=== PATIENT | female | born 1940 | race Hispanic/Latino ===

== ENCOUNTER 2017-09-05 15:51 | Inpatient (IN) | payer MEDICARE, BC ==
[2017-09-05 16:00] VITALS: BMI 42.9
[2017-09-05] MEDS ORDERED: Morphine 4 mg/ml ISec IVP STA (16:08)
[2017-09-05] MEDS ORDERED: Sodium Chloride 0.9% 1,000 ML IV STA (16:08)
[2017-09-05] MEDS ORDERED: DiphenhydrAMINE 50 mg/ml Inj IVP STA (16:08)
--- NOTE | 2017-09-05 16:09 | ED PDOC ---
Arrival/HPI - General Time Seen by Provider: 09/05/17 15:58 Historian: Patient - History of Present Illness Narrative History of Present Illness (Text): 09/05/17 16:06 76 year old female, whose history includes osteoarthritis, meningioma, ulcers, right knee replacement, and gall bladder surgery, presents to the Emergency department complaining of nausea for 1 week as well as fever and right lower back pain for 2 days. Patient states her doctor is concerned she may have a kidney infection. Patient denies any chest pain, shortness of breath, vomiting, diarrhea, urinary symptoms, neck pain, headache, dizziness, or any other complaints. PMD: Dr. Graff, Dr. Strickland Time/Duration: 1 week, < week (2 days ago) Symptom Onset: Gradual Symptom Course: Unchanged Context: Home Past Medical History - Provider Review Nursing Documentation Reviewed: Yes Family/Social History - Physician Review Nursing Documentation Reviewed: Yes Family/Social History: Unknown Family HX Allergies/Home Meds Allergies/Adverse Reactions: Allergies acetaminophen [From Percocet] Adverse Reaction (Verified 09/05/17 16:01) ITCHING ciprofloxacin [From Cipro] Adverse Reaction (Verified 09/05/17 16:01) ITCHING codeine Adverse Reaction (Verified 09/05/17 16:01) ITCHING levofloxacin [From Levaquin] Adverse Reaction (Verified 09/05/17 16:01) ITCHING oxycodone [From Percocet] Adverse Reaction (Verified 09/05/17 16:01) ITCHING sulfamethoxazole [From Bactrim] Adverse Reaction (Verified 09/05/17 16:01) ITCHING trimethoprim [From Bactrim] Adverse Reaction (Verified 09/05/17 16:01) ITCHING Review of Systems - Physician Review All systems were reviewed & negative as marked: Yes - Review of Systems Constitutional: Fevers Respiratory: absent: SOB Cardiovascular: absent: Chest Pain Gastrointestinal: Nausea. absent: Diarrhea, Vomiting Genitourinary Female: absent: Dysuria Musculoskeletal: Back Pain (right lower back pain). absent: Neck Pain Neurological: absent: Headache, Dizziness Physical Exam Vital Signs Reviewed: Yes Vital Signs Temp Pulse Resp BP Pulse Ox 09/05/17 16:03 98.8 F 89 18 107/50 L 95 Temperature: Afebrile Blood Pressure: Hypotensive Pulse: Regular Respiratory Rate: Normal Appearance: Positive for: Well-Appearing, Non-Toxic, Comfortable Pain Distress: None Mental Status: Positive for: Alert and Oriented X 3 - Systems Exam Head: Present: Atraumatic, Normocephalic Pupils: Present: PERRL Extroacular Muscles: Present: EOMI Conjunctiva: Present: Normal Mouth: Present: Moist Mucous Membranes Neck: Present: Normal Range of Motion Respiratory/Chest: Present: Clear to Auscultation, Good Air Exchange. No: Respiratory Distress, Accessory Muscle Use Cardiovascular: Present: Regular Rate and Rhythm, Normal S1, S2. No: Murmurs Abdomen: No: Tenderness, Distention, Peritoneal Signs Back: Present: Normal Inspection Upper Extremity: Present: Normal Inspection. No: Cyanosis, Edema Lower Extremity: Present: Normal Inspection. No: Edema Neurological: Present: GCS=15, CN II-XII Intact, Speech Normal Skin: Present: Warm, Dry, Normal Color. No: Rashes Psychiatric: Present: Alert, Oriented x 3, Normal Insight, Normal Concentration Medical Decision Making ED Course and Treatment: 09/05/17 16:12 Impression: 76 year old female presents to the Emergency department complaining of nausea, fever, and lower back pain. Plan: -- Blood culture, urine culture -- Urinalysis -- VBG -- Labs -- Benadryl, Morphine, Zofran, Sodium Chloride IV fluids -- Reassess and disposition Progress Notes: 09/05/17 20:33 Discussed case in detail with Dr. Strickland who requests the patient be given 2g of Rocephin. Will admit the patient for pyelonephritis. - Lab Interpretations Lab Results: 09/05/17 16:51 09/05/17 16:51 Lab Results 09/05/17 20:02: Urine Color Yellow, Urine Appearance Slight-cloudy, Urine pH 6.0 , Ur Specific [place] 1.010, Urine Protein Negative, Urine Glucose (UA) Negative , Urine Ketones Negative, Urine Blood Moderate H, Urine Nitrate Positive H, Urine Bilirubin Negative, Urine Urobilinogen 0.2, Ur Leukocyte Esterase Large H , Urine RBC 1 - 3, Urine WBC 5 - 10, Ur Epithelial Cells 6 - 8, Urine Bacteria Mod 09/05/17 16:51: Sodium 146, Chloride 104, Potassium 3.8, Carbon Dioxide 28, Anion Gap 18, BUN 15, Creatinine 1.0, Est GFR ( Amer) > 60, Est GFR (Non- Af Amer) 54, Random Glucose 119 H, Calcium 9.1, Total Bilirubin 1.9 H, AST 91 H , ALT 47, Alkaline Phosphatase 104, Total Protein 7.4, Albumin 3.9, Globulin 3.5 , Albumin/Globulin Ratio 1.1, Lipase 31 09/05/17 16:51: pO2 27 L, VBG pH 7.35, VBG pCO2 54.0, VBG HCO3 29.8 H, VBG Total CO2 31.5 H, VBG O2 Sat (Calc) 54.5, VBG Base Excess 2.9 H, VBG Potassium 3.6, Sodium 140.0, Chloride 105.0, Glucose 122 H, Lactate 1.8, FiO2 21.0, Venous Blood Potassium 3.6 09/05/17 16:51: PT 15.9 H, INR 1.39 H 09/05/17 16:51: WBC 17.9 H, RBC 4.86, Hgb 14.6, Hct 44.1, MCV 90.7, MCH 30.0, MCHC 33.1, RDW 14.4, Plt Count 161, MPV 10.9, Gran % 91.8 H, Lymph % (Auto) 3.8 L, [place] % (Auto) 4.3, Eos % (Auto) 0.0 L, Baso % (Auto) 0.1, Gran # 16.45 H, Lymph # (Auto) 0.7 L, [place] # (Auto) 0.8 H, Eos # (Auto) 0.0, Baso # (Auto) 0.01 , Neutrophils % (Manual) 85 H, Band Neutrophils % 3 H, Lymphocytes % (Manual) 9 L, Monocytes % (Manual) 3, Platelet Evaluation Normal - RAD Interpretation Radiology Orders: 09/05/17 16:37 ABD PELVIS PO & IV CONTRAST [CT] Stat 09/05/17 18:54 LUMBAR SPINE W/CONTRAST [CT] Stat - Medication Orders Current Medication Orders: Ceftriaxone Sodium (Rocephin 2 Gm Ivpb) 2 gm in 100 mls @ 100 mls/hr IVPB STAT STA PRN Reason: Protocol Stop: 09/05/17 21:14 Discontinued Medications Acetaminophen (Tylenol 325mg Tab) 975 mg PO STAT STA Stop: 09/05/17 17:06 Last Admin: 09/05/17 17:25 Dose: 975 mg MAR Pain/Vitals Document 09/05/17 17:25 HI (Rec: 09/05/17 17:25 HI [facility]) Pain Reassessment Is This A Pain ReAssessment? No Sleep Is patient sleeping during reassessment? No Presence of Pain Presence of Pain Yes Sodium Chloride (Sodium Chloride 0.9%) 1,000 mls @ 999 mls/hr IV .Q1H1M STA Stop: 09/05/17 17:08 Last Admin: 09/05/17 16:56 Dose: 999 mls/hr eMAR Start Stop Document 09/05/17 16:56 HI (Rec: 09/05/17 16:56 [facility]) Intravenous Solution Start Date 09/05/17 Start Time 16:56 Ondansetron HCl (Zofran Inj) 8 mg IVP STAT STA Stop: 09/05/17 16:09 Last Admin: 09/05/17 16:56 Dose: 8 mg IVP Administration Document 09/05/17 16:56 HI (Rec: 09/05/17 16:56 [facility] Charges for Administration # of IVP Administrations 1 Ondansetron HCl (Zofran Inj) 4 mg IVP STAT STA Stop: 09/05/17 19:58 Last Admin: 09/05/17 20:09 Dose: 4 mg IVP Administration Document 09/05/17 20:09 HI (Rec: 09/05/17 20:09 HI [facility]) Charges for Administration # of IVP Administrations 1 - Scribe Statement The provider has reviewed the documentation as recorded by the Scribbob Dan All medical record entries made by the Meghaibbob were at my direction and personally dictated by me. I have reviewed the chart and agree that the record accurately reflects my personal performance of the history, physical exam, medical decision making, and the department course for this patient. I have also personally directed, reviewed, and agree with the discharge instructions and disposition. Disposition/Present on Arrival - Present on Arrival Any Indicators Present on Arrival: No History of DVT/PE: No History of Uncontrolled Diabetes: No Urinary Catheter: No History of Decub. Ulcer: No History Surgical Site Infection Following: None - Disposition Have Diagnosis and Disposition been Completed?: Yes Diagnosis: Pyelonephritis Disposition: HOSPITALIZED Disposition Time: 20:41 Patient Plan: Admission Patient Problems: Current Active Problems Problem Status Onset Pyelonephritis Acute Condition: FAIR
[2017-09-05 17:11] LABS: VENOUS BLOOD GAS BASE EXCESS 2.9 mmol/L (0.0-2.0); VENOUS BLOOD GAS PO2 27 mm/Hg (30-55); VENOUS BLOOD PH 7.35 (7.32-7.43)
[2017-09-05 17:13] LABS: BASO # 0.01 K/mm3 (0.0-2.0); BASO % 0.1 % (0.0-3.0); GRAN # 16.45 (1.4-6.5); GRAN % 91.8 % (50.0-68.0); HEMOGLOBIN 14.6 g/dL (12.0-16.0); LYMPH # 0.7 (1.2-3.4); LYMPH % 3.8 % (22.0-35.0); MEAN CELL VOLUME 90.7 fl (80.0-105.0); MEAN CORPUSCULAR HGB CONC 33.1 g/dl (31.0-37.0); MEAN PLATELET VOLUME 10.9 fl (7.0-11.0); MONO # 0.8 (0.1-0.6); MONO % 4.3 % (1.0-6.0); PLATELET COUNT 161 10^3/uL (120.0-450.0); RBC 4.86 10^6/uL (3.5-6.1); RED CELL DISTRIBUTION WIDTH 14.4 % (11.5-14.5); WHITE BLOOD COUNT 17.9 10^3/ul (4.5-11.0)
[2017-09-05 17:19] LABS: INR 1.39 (0.93-1.08); PROTHROMBIN TIME 15.9 SECONDS (9.4-12.5)
[2017-09-05] MEDS ORDERED: Iohexol 240 (50 ml) ONE (17:21)
[2017-09-05 17:46] LABS: BAND 3 % (0-2); LYMPHOCYTE 9 % (22.0-35.0); MONOCYTE 3 % (1.0-6.0); NEUTROPHIL 85 % (50.0-70.0); PLATELET ESTIMATE NORMAL (NORMAL)
[2017-09-05 17:53] LABS: ALB/GLOB RATIO 1.1 (1.1-1.8); ALBUMIN 3.9 g/dL (3.0-4.8); ALT/SGPT 47 U/L (7-56); AST/SGOT 91 U/L (14-36); BLOOD UREA NITROGEN 15 mg/dL (7-21); CALCIUM 9.1 mg/dL (8.4-10.5); GFR NON-AFRICAN AMERICAN 54; LIPASE 31 U/L (23-300)
[2017-09-05 20:11] LABS: URINE BILIRUBIN NEGATIVE (NEGATIVE); URINE BLOOD MODERATE (NEGATIVE); URINE GLUCOSE (UA) NEGATIVE (NEGATIVE); URINE LEUKOCYTE ESTERASE LARGE Leu/uL (NEGATIVE); URINE PROTEIN NEGATIVE mg/dL (<30 mg/dL); URINE UROBILINOGEN 0.2 E.U./dL (<1 E.U./dL)
[2017-09-05 20:12] LABS: URINE APPEARANCE SLIGHT-CLOUDY (CLEAR); URINE COLOR YELLOW (YELLOW)
[2017-09-05] MEDS ORDERED: cefTRIAXone 2 GM IN NS 2 GM/100 ML BAG IVPB STA (20:15)
[2017-09-05 20:16] LABS: URINE BACTERIA MOD (NEG)
[2017-09-05] MEDS ORDERED: Sodium Chloride 0.9% 1,000 ML IV SCH (23:45)
--- NOTE | 2017-09-06 04:45 | CP.PCM.PN ---
Subjective - Date & Time of Evaluation Date of Evaluation: 09/06/17 Time of Evaluation: 04:42 - Subjective Subjective: S:Nausea. Received Zofran 8 mg IV at 1:40 AM. Still nauseous. Denies chest pain, palpitation, sob. Gives history of GERD. Medical record was reviewed. O: Last Vital Signs 3 Temp 99 F 09/06/17 04:32 Pulse 94 H 09/06/17 04:32 Resp 20 09/06/17 04:32 BP 141/69 09/06/17 04:32 Pulse Ox 98 09/06/17 04:32 Awake, alert, not in distress. LUNGS:Normal breathing pattern. ABD: No distension. A: Nausea. P:Reglan 10 mg IV x 1. Objective - Vital Signs/Intake and Output Vital Signs (last 24 hours): Temp Pulse Resp BP Pulse Ox 99 F 94 H 20 141/69 98 09/06/17 04:32 09/06/17 04:32 09/06/17 04:32 09/06/17 04:32 09/06/17 04:32 - Medications Medications: Current Medications Acetaminophen (Tylenol 325mg Tab) 650 mg PO Q4H PRN PRN Reason: Pain, Mild (1-3) Aspirin (Aspirin Chewable) 81 mg PO DAILY [facility] Sodium Chloride (Sodium Chloride 0.9%) 1,000 mls @ 75 mls/hr IV .[id number] [facility] Stop: 09/06/17 13:04 Last Admin: 09/06/17 00:12 Dose: 75 mls/hr Metoclopramide HCl (Reglan) 10 mg IVP STAT STA Stop: 09/06/17 04:43 Ondansetron HCl (Zofran Inj) 4 mg IVP Q4H PRN PRN Reason: Nausea/Vomiting Last Admin: 09/06/17 01:41 Dose: 4 mg - Labs Labs: PT 15.9 SECONDS (9.4-12.5) H 09/05/17 16:51 INR 1.39 (0.93-1.08) H 09/05/17 16:51
[2017-09-06 07:40] LABS: HEMOGLOBIN 13.9 g/dL (12.0-16.0); MEAN CELL VOLUME 91.1 fl (80.0-105.0); MEAN CORPUSCULAR HEMOGLOBIN 30.2 pg (25.0-35.0); MEAN CORPUSCULAR HGB CONC 33.2 g/dl (31.0-37.0); MEAN PLATELET VOLUME 10.6 fl (7.0-11.0); RBC 4.6 10^6/uL (3.5-6.1); RED CELL DISTRIBUTION WIDTH 14.7 % (11.5-14.5); WHITE BLOOD COUNT 12.5 10^3/ul (4.5-11.0)
[2017-09-06 07:50] LABS: ALB/GLOB RATIO 1.2 (1.1-1.8); ALBUMIN 3.5 g/dL (3.0-4.8); ALT/SGPT 51 U/L (7-56); AST/SGOT 95 U/L (14-36); BLOOD UREA NITROGEN 14 mg/dL (7-21); GFR NON-AFRICAN AMERICAN > 60
[2017-09-06] MEDS ORDERED: cefTRIAXone 1 gm 1 GM/100 ML BAG IVPB SCH (10:00)
[2017-09-06] MEDS: Cefepime IV 2 gm in NS 2 GM/100 ML BAG IVPB SCH ×3 (10:09→21:36)
--- NOTE | 2017-09-06 12:40 | CT ---
PROCEDURE: CT Lumbar Spine without contrast HISTORY: Right Sided Lumbar Radiculopathy COMPARISON: None. TECHNIQUE: Axial computed tomography images were obtained of the lumbar spine without the use of intravenous contrast. Coronal and sagittal reformatted images were created and reviewed. Radiation dose: Total exam DLP = 1164 mGy-cm. This CT exam was performed using one or more of the following dose reduction techniques: Automated exposure control, adjustment of the mA and/or kV according to patient size, and/or use of iterative reconstruction technique. FINDINGS: VERTEBRAE: There is a moderate compression fracture of L2 greater on the right side. Probably chronic. Age uncertain DISCS/SPINAL CANAL/NEURAL FORAMINA: L1-2: Unremarkable. L2-3: Unremarkable. L3-4: Unremarkable. L4-5: Mild disc bulge L5-S1: Disc degeneration at L5-S1 PARASPINAL SOFT TISSUES: Unremarkable. OTHER FINDINGS: The report concurs with the preliminary [facility] report IMPRESSION: Moderate compression fracture of L2 probably chronic.
--- NOTE | 2017-09-06 12:45 | CT ---
PROCEDURE: CT Abdomen and Pelvis with contrast HISTORY: Diffuse Abdominal Pain COMPARISON: None. TECHNIQUE: Contrast dose: 150 cc of Omni 350 Radiation dose: Total exam DLP = 1164 mGy-cm. This CT exam was performed using one or more of the following dose reduction techniques: Automated exposure control, adjustment of the mA and/or kV according to patient size, and/or use of iterative reconstruction technique. FINDINGS: LOWER THORAX: Unremarkable. LIVER: Unremarkable. No gross lesion or ductal dilatation. GALLBLADDER AND BILE DUCTS: Unremarkable. PANCREAS: Unremarkable. No gross lesion or ductal dilatation. SPLEEN: Unremarkable. ADRENALS: Unremarkable. No mass. KIDNEYS AND URETERS: Unremarkable. No hydronephrosis. No solid mass. VASCULATURE: Unremarkable. No aortic aneurysm. BOWEL: Unremarkable. No obstruction. No gross mural thickening. APPENDIX: Normal appendix. PERITONEUM: Unremarkable. No free fluid. No free air. LYMPH NODES: Unremarkable. No enlarged lymph nodes. BLADDER: Unremarkable. REPRODUCTIVE: Unremarkable. BONES: Chronic appearing compression fracture of L2 OTHER FINDINGS: The report concurs with the preliminary [facility] report IMPRESSION: No acute intra-abdominal findings
[2017-09-06] MEDS: Lidocaine 5% Patch TD SCH (13:37)
--- NOTE | 2017-09-06 20:03 | HP ---
CHIEF COMPLAINT AND HISTORY OF PRESENT ILLNESS: This is a 76-year-old female who has come into the hospital complaining of nausea, fever. She was having right-sided back pain for the past two days. She was having dysuria, frequency. The patient has a past medical history of osteoarthritis, meningioma, peptic ulcer disease, right knee replacement, gallbladder surgery. REVIEW OF SYSTEMS: The patient has no abdominal pain, no headaches or dizziness, no weakness in the arms or the legs. She says she does have urinary frequency. She does have nausea. All other review of symptoms are within normal limits except what was mentioned. ALLERGIES: CIPRO, CODEINE, LEVOFLOXACIN, OXYCODONE, IBUPROFEN, . PAST MEDICAL HISTORY: As above. SOCIAL HISTORY: She denies drug use or smoking. FAMILY HISTORY: Noncontributory. PHYSICAL EXAMINATION VITAL SIGNS: The patient has a temperature of 99.8, pulse is 94, blood pressure is 141/69, respirations 20, O2 saturation 98%. GENERAL: The patient lying in bed, uncomfortable, and in no acute distress. HEENT: Atraumatic and normocephalic. Anicteric sclerae. Moist mucosa. [place]her conjunctivae. No oral lesions. NECK: No JVD, anterior and posterior adenopathy, thyromegaly, or bruits. CARDIOVASCULAR: S1 and S2 regular. No murmur, rubs, or gallop. LUNGS: Clear to auscultation bilaterally. No wheezes, rales, or rhonchi. ABDOMEN: Bowel sounds are positive. Soft, nontender and nondistended. No hepatosplenomegaly. No rebound and no guarding EXTREMITIES: No cyanosis, clubbing, or edema. NEUROLOGIC: No facial asymmetry. Tongue is midline. No uvula deviation. Power is 5/5 upper extremity and lower extremity. Sensation intact in upper extremity and lower extremity. PSYCHIATRIC: She is awake, alert and oriented x3. No anxiety or depression. She has normal affect. VASCULAR: 2+ pulses in the carotid pulses and pedal pulses. SKIN: No erythema or nodules SPINE: Shows normal curvature. BACK: There is right-sided CVA tenderness. LABORATORY DATA: White count of 17.9, repeat is 12.5. INR is 1.39. Chemistry shows potassium is 3.8, sodium is 146, creatinine is 1, albumin is 3.9. Urine shows blood is moderate, nitrite is positive, esterase is large. ASSESSMENT: 1. Sepsis secondary to urinary tract infection. 2. Right-sided pyelonephritis. 3. Obese with body mass index of 42. 4. History of peptic ulcer disease. PLAN: The patient is complaining of nausea. The patient has been placed on Zofran. She is going to continue Tylenol. I did offer her pain medication, but she says she is allergic to most pain medications, does not wish to take risk of taking either MORPHINE, PERCOCET OR CODEINE. The patient is on IV fluids. I will give her 1 liter. She is on aspirin. She needs to continue on antibiotics. I will get ID to evaluate the patient as well. Oliver Strickland MD
--- NOTE | 2017-09-06 21:12 | CP.PCM.CON ---
History of Present Illness - History of Present Illness History of Present Illness: 76 year old female with PMH of osteoarthritis, meningioma, S/P right knee replacement, S/P gallbladder surgery, morbid obesity with BMI 43 came in to [facility] complaining of right sided back pain associated with fever and chills. She also had nausea and an episode of vomiting, but denies abdominal pain, no dysuria, no hematuria, no diarrhea. She also denies headache or dizziness, no chest pain , no SOB, no cough or rhinorrhea, no sore throat. Urinalysis is showing pyuria and blood cx are positive for gram negative bacilli. Infectious Diseases consult is requested to further evaluate and manage. Review of Systems - Review of Systems All systems: reviewed and no additional remarkable complaints except (as per HPI ) Past Patient History - Past Social History Smoking Status: Never Smoked - NEUROLOGICAL Other/Comment: Meningioma - MUSCULOSKELETAL/RHEUMATOLOGICAL Hx Falls: No - GASTROINTESTINAL Hx Gastroesophageal Reflux: Yes Hx Ulcer: Yes - PSYCHIATRIC Hx Substance Use: No - ANESTHESIA Hx Anesthesia: No Hx Anesthesia Reactions: No Hx Malignant Hyperthermia: No Meds Allergies/Adverse Reactions: Allergies Allergy/AdvReac Type Severity Reaction Status Date / Time ciprofloxacin [From Cipro] AdvReac ITCHING Verified 09/05/17 16:01 codeine AdvReac ITCHING Verified 09/05/17 16:01 levofloxacin [From Levaquin] AdvReac ITCHING Verified 09/05/17 16:01 oxycodone [From Percocet] AdvReac ITCHING Verified 09/05/17 16:01 sulfamethoxazole AdvReac ITCHING Verified 09/05/17 16:01 [From Bactrim] trimethoprim [From Bactrim] AdvReac ITCHING Verified 09/05/17 16:01 - Medications Medications: Current Medications Acetaminophen (Tylenol 325mg Tab) 650 mg PO Q4H PRN PRN Reason: Pain, Mild (1-3) Last Admin: 09/06/17 05:58 Dose: 650 mg Aspirin (Aspirin Chewable) 81 mg PO DAILY [facility] Sodium Chloride (Sodium Chloride 0.9%) 1,000 mls @ 75 mls/hr IV .[id number] [facility] Stop: 09/06/17 13:04 Last Admin: 09/06/17 00:12 Dose: 75 mls/hr Cefepime HCl (Maxipime 2gm) 2 gm in 100 mls @ 100 mls/hr IVPB Q8 [facility] PRN Reason: Protocol Stop: 09/11/17 09:16 Ondansetron HCl (Zofran Inj) 4 mg IVP Q4H PRN PRN Reason: Nausea/Vomiting Last Admin: 09/06/17 05:58 Dose: 4 mg Physical Exam - Constitutional Appears: Chronically Ill - Head Exam Head Exam: NORMAL INSPECTION - ENT Exam ENT Exam: Mucous Membranes Moist - Neck Exam Neck exam: Negative for: Meningismus - Respiratory Exam Respiratory Exam: Decreased Breath Sounds - Cardiovascular Exam Cardiovascular Exam: +S1, +S2 - GI/Abdominal Exam GI & Abdominal Exam: Soft. absent: Tenderness Results - Vital Signs Recent Vital Signs: Last Vital Signs Temp 99.8 F H 09/06/17 07:43 Pulse 94 H 09/06/17 07:43 Resp 20 09/06/17 07:43 BP 141/69 09/06/17 07:43 Pulse Ox 98 09/06/17 07:43 - Labs Result Diagrams: 09/06/17 07:00 09/06/17 07:00 Labs: Laboratory Results - last 24 hr 09/06/17 09/06/17 07:00 07:00 WBC 12.5 H D RBC 4.60 Hgb 13.9 Hct 41.9 MCV 91.1 MCH 30.2 MCHC 33.2 RDW 14.7 H Plt Count 124 MPV 10.6 Sodium 148 Potassium 4.4 Chloride 109 H Carbon Dioxide 29 Anion Gap 14 BUN 14 Creatinine 0.9 Est GFR ( Amer) > 60 Est GFR (Non-Af Amer) > 60 Random Glucose 109 Calcium 9.0 Total Bilirubin 1.2 AST 95 H ALT 51 Alkaline Phosphatase 103 Total Protein 6.6 Albumin 3.5 Globulin 3.1 Albumin/Globulin Ratio 1.2 Assessment & Plan - Assessment and Plan (Free Text) Plan: Assessment Sepsis due to gram negative bacilli bacteremia, consider due to right sided pyelonephritis osteoarthritis meningioma S/P right knee replacement S/P gallbladder surgery morbid obesity with BMI 43 Plan started Cefepime pending identification and sensitivities of the gram negative bacilli in the blood; follow up urine cx; CT A/P does not show nephrolithiasis will monitor clinically
[2017-09-07] MEDS: Cefepime IV 2 gm in NS 2 GM/100 ML BAG IVPB SCH ×3 (05:37→21:15)
[2017-09-07 06:49] LABS: HEMOGLOBIN 13.4 g/dL (12.0-16.0); MEAN CELL VOLUME 90.5 fl (80.0-105.0); MEAN CORPUSCULAR HEMOGLOBIN 29.5 pg (25.0-35.0); MEAN CORPUSCULAR HGB CONC 32.5 g/dl (31.0-37.0); MEAN PLATELET VOLUME 10.8 fl (7.0-11.0); RBC 4.55 10^6/uL (3.5-6.1); RED CELL DISTRIBUTION WIDTH 14.6 % (11.5-14.5); WHITE BLOOD COUNT 10.2 10^3/ul (4.5-11.0)
[2017-09-07] MEDS: Lidocaine 5% Patch TD SCH (09:21)
--- NOTE | 2017-09-07 11:11 | PN ---
DATE: 09/07/2017 SUBJECTIVE: The patient has no complaints of any chest pain, no shortness of breath. She says that her back pain is better. Her dysuria has improved a bit since she has been in the hospital. She does have nausea still. She has a poor appetite. PHYSICAL EXAMINATION VITAL SIGNS: Temperature is 97.9, pulse of 90, blood pressure is 101/62, respiration is 20. GENERAL: The patient is lying in bed, flat, comfortable. HEENT: No oral lesion. Anicteric sclerae. Moist mucosa. NECK: No JVD, adenopathy, or thyromegaly. CARDIOVASCULAR: S1 and S2, regular. No murmurs, rubs, or gallops. LUNGS: Clear to auscultation bilaterally. No wheeze, rales, or rhonchi. ABDOMEN: Bowel sounds are positive, soft, nontender and nondistended. EXTREMITIES: no cyanosis, clubbing or edema. LABORATORY DATA: White count of 10.2, hemoglobin is 13.4, platelet count is 91. Blood cultures are positive for gram-negative rods. ASSESSMENT AND PLAN: 1. Sepsis secondary to gram-negative rods. 2. Right-sided pyelonephritis. 3. Obese with BMI of 43. 4. Peptic ulcer disease. 5. Nausea. PLAN: The patient is improving. Her sepsis is improving with a white count being normal. The patient is on IV antibiotics. She is on cefepime for antibiotics. She is on Tylenol. She is on Zofran. She is on a heart healthy diet. I will speak to the patient's to give an update on the patient's diagnostics and plan of care. She may need physical therapy. We will get physical therapy evaluation. Also, possible TCU evaluation. Clinically, she has right-sided pyelonephritis. Oliver Strickland MD
--- NOTE | 2017-09-07 12:07 | CP.PCM.PN ---
Subjective - Date & Time of Evaluation Date of Evaluation: 09/07/17 Time of Evaluation: 11:25 - Subjective Subjective: Patient has less back pain, still with nausea but a little less, no fevers overnight. Objective - Vital Signs/Intake and Output Vital Signs (last 24 hours): Temp Pulse Resp BP Pulse Ox 97.9 F 90 20 101/62 95 09/07/17 06:00 09/07/17 06:00 09/07/17 06:00 09/07/17 06:00 09/07/17 06:00 - Medications Medications: Current Medications Acetaminophen (Tylenol 325mg Tab) 650 mg PO Q4H PRN PRN Reason: Pain, Mild (1-3) Last Admin: 09/07/17 03:24 Dose: 650 mg Aspirin (Aspirin Chewable) 81 mg PO DAILY [facility] Last Admin: 09/07/17 09:21 Dose: 81 mg Cefepime HCl (Maxipime 2gm) 2 gm in 100 mls @ 100 mls/hr IVPB Q8 [facility] PRN Reason: Protocol Stop: 09/11/17 09:16 Last Admin: 09/07/17 05:37 Dose: 100 mls/hr Lidocaine (Lidoderm) 1 ea TD DAILY [facility] Last Admin: 09/07/17 09:21 Dose: 1 ea Ondansetron HCl (Zofran Inj) 4 mg IVP Q4H PRN PRN Reason: Nausea/Vomiting Last Admin: 09/07/17 03:23 Dose: 4 mg Tramadol HCl (Ultram) 50 mg PO Q6H PRN PRN Reason: Pain, severe (8-10) - Labs Labs: 09/07/17 06:30 09/06/17 07:00 PT 15.9 SECONDS (9.4-12.5) H 09/05/17 16:51 INR 1.39 (0.93-1.08) H 09/05/17 16:51 - Constitutional Appears: Non-toxic, Chronically Ill - Head Exam Head Exam: NORMAL INSPECTION - Neck Exam Neck Exam: absent: Meningismus - Respiratory Exam Respiratory Exam: Decreased Breath Sounds - Cardiovascular Exam Cardiovascular Exam: +S1, +S2 - GI/Abdominal Exam GI & Abdominal Exam: Soft. absent: Tenderness Assessment and Plan - Assessment and Plan (Free Text) Plan: Assessment Sepsis due to gram negative bacilli bacteremia, probably due to right sided pyelonephritis osteoarthritis meningioma S/P right knee replacement S/P gallbladder surgery morbid obesity with BMI 43 Plan cotinue Cefepime day 2 pending identification and sensitivities of the gram negative bacilli in the blood and urine; follow up urine cx; CT A/P does not show nephrolithiasis will continue to monitor clinically
[2017-09-08] MEDS: Cefepime IV 2 gm in NS 2 GM/100 ML BAG IVPB SCH ×3 (05:37→22:09)
[2017-09-08] MEDS: Pantoprazole 40 mg EC Tab PO SCH (10:03)
[2017-09-08] MEDS: Lidocaine 5% Patch TD SCH (10:04)
--- NOTE | 2017-09-08 14:03 | PN ---
DATE: 09/08/2017 SUBJECTIVE: The patient has no complaints of any chest pain, no shortness of breath. She continues to complain of nausea. She states that she also is having back pain and having difficulty in ambulating. Her pain is about 5-6/10. She states she is agreeable to take NSAIDs with PPI to help well with the pain management. PHYSICAL EXAMINATION: VITAL SIGNS: Temperature is 97.8, pulse of 86, blood pressure is 143/84, respirations 20. GENERAL: The patient is lying in bed, flat, comfortable. HEENT: No oral lesion. Anicteric sclerae. Moist mucosa. NECK: No JVD, adenopathy, or thyromegaly. CARDIOVASCULAR: S1 and S2, regular. No murmurs, rubs, or gallops. LUNGS: Clear to auscultation bilaterally. No wheeze, rales, or rhonchi. ABDOMEN: Bowel sounds are positive, soft, nontender and nondistended. EXTREMITIES: No cyanosis, clubbing or edema. ASSESSMENT: 1. Sepsis secondary to urinary tract infection. 2. Right-sided pyelonephritis. 3. Obese with body mass index of 43. 4. Nausea. 5. L2 vertebral chronic. 6. Peptic ulcer disease. PLAN: The patient is currently comfortable. She is on aspirin. She is going to continue with cefepime for antibiotics and ibuprofen. She is going to be Tylenol as needed. I have added ibuprofen to her medications as well as Protonix. Condition is stable. Activity is increased as tolerated. Oliver Strickland MD
--- NOTE | 2017-09-08 16:47 | CP.PCM.PN ---
Subjective - Date & Time of Evaluation Date of Evaluation: 09/08/17 Time of Evaluation: 11:10 - Subjective Subjective: Still having nausea, still with low grade fevers overnight. Objective - Vital Signs/Intake and Output Vital Signs (last 24 hours): Temp Pulse Resp BP Pulse Ox 97.8 F 86 20 143/84 97 09/08/17 06:00 09/08/17 06:00 09/08/17 06:00 09/08/17 06:00 09/08/17 06:00 Intake and Output: 09/08/17 09/08/17 06:59 18:59 Intake Total 240 Balance 240 - Medications Medications: Current Medications Acetaminophen (Tylenol 325mg Tab) 650 mg PO Q4H PRN PRN Reason: Pain, Mild (1-3) Last Admin: 09/07/17 18:23 Dose: 650 mg Aspirin (Aspirin Chewable) 81 mg PO DAILY [facility] Last Admin: 09/07/17 09:21 Dose: 81 mg Cefepime HCl (Maxipime 2gm) 2 gm in 100 mls @ 100 mls/hr IVPB Q8 [facility] PRN Reason: Protocol Stop: 09/11/17 09:16 Last Admin: 09/08/17 05:37 Dose: 100 mls/hr Ibuprofen (Motrin Tab) 800 mg PO Q6 PRN PRN Reason: Pain, moderate (4-7) Ibuprofen (Motrin Tab) 800 mg PO ONCE ONE Stop: 09/08/17 10:01 Lidocaine (Lidoderm) 1 ea TD DAILY [facility] Last Admin: 09/07/17 09:21 Dose: 1 ea Ondansetron HCl (Zofran Inj) 4 mg IVP Q4H PRN PRN Reason: Nausea/Vomiting Last Admin: 09/08/17 06:15 Dose: 4 mg Pantoprazole Sodium (Protonix Ec Tab) 40 mg PO 0600 [facility] Tramadol HCl (Ultram) 50 mg PO Q6H PRN PRN Reason: Pain, severe (8-10) - Labs Labs: 09/07/17 06:30 09/06/17 07:00 PT 15.9 SECONDS (9.4-12.5) H 09/05/17 16:51 INR 1.39 (0.93-1.08) H 09/05/17 16:51 - Constitutional Appears: Chronically Ill - Head Exam Head Exam: NORMAL INSPECTION - ENT Exam ENT Exam: Mucous Membranes Moist - Respiratory Exam Respiratory Exam: Decreased Breath Sounds - Cardiovascular Exam Cardiovascular Exam: +S1, +S2 - GI/Abdominal Exam GI & Abdominal Exam: Soft. absent: Tenderness Assessment and Plan - Assessment and Plan (Free Text) Plan: Assessment Sepsis due to E. coli bacteremia, probably due to right sided pyelonephritis osteoarthritis meningioma S/P right knee replacement S/P gallbladder surgery morbid obesity with BMI 43 Plan cotinue Cefepime day 3; urine and blood c are showing both E. coli - will need at least 24 hours of being afebrile before switching to PO antibiotics CT A/P does not show nephrolithiasis will continue to monitor clinically
[2017-09-09] MEDS: Cefepime IV 2 gm in NS 2 GM/100 ML BAG IVPB SCH ×2 (05:22→14:03)
[2017-09-09 07:22] LABS: MEAN CELL VOLUME 90.2 fl (80.0-105.0); MEAN CORPUSCULAR HEMOGLOBIN 29.1 pg (25.0-35.0); MEAN CORPUSCULAR HGB CONC 32.3 g/dl (31.0-37.0); MEAN PLATELET VOLUME 11.6 fl (7.0-11.0); RBC 4.47 10^6/uL (3.5-6.1); RED CELL DISTRIBUTION WIDTH 14.9 % (11.5-14.5); WHITE BLOOD COUNT 12.3 10^3/ul (4.5-11.0)
[2017-09-09 07:28] LABS: ALB/GLOB RATIO 0.9 (1.1-1.8); ALT/SGPT 52 U/L (7-56); AST/SGOT 53 U/L (14-36); BLOOD UREA NITROGEN 15 mg/dL (7-21); CALCIUM 9.1 mg/dL (8.4-10.5); GFR NON-AFRICAN AMERICAN > 60
--- NOTE | 2017-09-09 10:10 | PN ---
DATE: 09/09/2017 SUBJECTIVE: The patient says her nausea has improved. She is able to eat. She continues to have back pain and has difficulty in ambulating. She has no complaints of any chest pain, no shortness of breath, no headaches. PHYSICAL EXAMINATION VITAL SIGNS: Temperature is 98.5, pulse is 72, blood pressure 113/66, respirations 20. GENERAL: The patient is lying in bed, flat, comfortable. HEENT: No oral lesion. Anicteric sclerae. Moist mucosa. NECK: No JVD, adenopathy, or thyromegaly. CARDIOVASCULAR: S1 and S2, regular. No murmurs, rubs, or gallops. LUNGS: Clear to auscultation bilaterally. No wheeze, rales, or rhonchi. ABDOMEN: Bowel sounds are positive, soft, nontender and nondistended. EXTREMITIES: No cyanosis, clubbing or edema. LABORATORY DATA: White count of 12.3, hemoglobin is 13, creatinine is 0.8. ASSESSMENT: 1. Sepsis secondary to Escherichia coli. 2. Right-sided pyelonephritis. 3. L2 vertebral fracture, acute. 4. Obesity with a body mass index of 43. 5. Nausea, improved. 6. Peptic ulcer disease. PLAN: The patient is currently comfortable. She does have blood cultures and urine cultures that have been positive for E. coli. She is not able to ambulate well. I did review the patient's physical therapy note and I do not agree with it. The patient will get reevaluated today. I think she will need subacute rehab and probably about 3 weeks of intensive rehabilitation in order to help her ambulate better. She is also not taking enough pain medications to allow for her pain to be controlled to work with physical therapy. I did advise her to try to use medications to help her. She is worried about the side effects, although most of the side effects are not true allergies. The patient is currently on ibuprofen and Protonix. She was also given Ultram to use. I will also add on Lidocaine patch. We will continue to follow closely. Oliver Strickland MD
[2017-09-09] MEDS: Enoxaparin 40 mg Syringe SC SCH (10:19)
[2017-09-09] MEDS: Lidocaine 5% Patch TD SCH (10:20)
--- NOTE | 2017-09-09 17:49 | CP.PCM.PN ---
Subjective - Date & Time of Evaluation Date of Evaluation: 09/09/17 Time of Evaluation: 10:55 - Subjective Subjective: Nausea has improved, no fevers in 24 hours, not in distress, back pain is improving. Objective - Vital Signs/Intake and Output Vital Signs (last 24 hours): Temp Pulse Resp BP Pulse Ox 98.5 F 72 20 113/66 98 09/09/17 06:00 09/09/17 06:00 09/09/17 06:00 09/09/17 06:00 09/09/17 06:00 Intake and Output: 09/09/17 09/09/17 06:59 18:59 Intake Total 480 Balance 480 - Medications Medications: Current Medications Acetaminophen (Tylenol 325mg Tab) 650 mg PO Q4H PRN PRN Reason: Pain, Mild (1-3) Last Admin: 09/07/17 18:23 Dose: 650 mg Aspirin (Aspirin Chewable) 81 mg PO DAILY [facility] Last Admin: 09/08/17 10:03 Dose: 81 mg Enoxaparin Sodium (Lovenox) 40 mg SC DAILY [facility] PRN Reason: Protocol Cefepime HCl (Maxipime 2gm) 2 gm in 100 mls @ 100 mls/hr IVPB Q8 [facility] PRN Reason: Protocol Stop: 09/11/17 09:16 Last Admin: 09/09/17 05:22 Dose: 100 mls/hr Ibuprofen (Motrin Tab) 800 mg PO Q6 PRN PRN Reason: Pain, moderate (4-7) Lidocaine (Lidoderm) 1 ea TD DAILY [facility] Ondansetron HCl (Zofran Inj) 4 mg IVP Q4H PRN PRN Reason: Nausea/Vomiting Last Admin: 09/08/17 06:15 Dose: 4 mg Pantoprazole Sodium (Protonix Ec Tab) 40 mg PO 0600 [facility] Last Admin: 09/08/17 10:03 Dose: 40 mg Tramadol HCl (Ultram) 50 mg PO Q6H PRN PRN Reason: Pain, severe (8-10) Last Admin: 09/09/17 01:49 Dose: 50 mg - Labs Labs: 09/09/17 06:51 09/09/17 06:51 PT 15.9 SECONDS (9.4-12.5) H 09/05/17 16:51 INR 1.39 (0.93-1.08) H 09/05/17 16:51 - Constitutional Appears: Non-toxic, Chronically Ill - Head Exam Head Exam: NORMAL INSPECTION - ENT Exam ENT Exam: Mucous Membranes Moist - Neck Exam Neck Exam: absent: Meningismus - Respiratory Exam Respiratory Exam: Decreased Breath Sounds. absent: Rales - Cardiovascular Exam Cardiovascular Exam: +S1, +S2 - GI/Abdominal Exam GI & Abdominal Exam: Soft. absent: Tenderness Assessment and Plan - Assessment and Plan (Free Text) Plan: Assessment Sepsis due to E. coli bacteremia, probably due to right sided pyelonephritis osteoarthritis meningioma S/P right knee replacement S/P gallbladder surgery morbid obesity with BMI 43 Plan on Cefepime day 4 - can switch to Rocephin for another 10 days; urine and blood c are showing both E. coli CT A/P does not show nephrolithiasis will continue to monitor clinically
[2017-09-09] MEDS: cefTRIAXone 2 GM IN NS 2 GM/100 ML BAG IVPB SCH (19:44)
[2017-09-09 23:18] VITALS: RESP 20
[2017-09-10] MEDS: Pantoprazole 40 mg EC Tab PO SCH (05:45)
[2017-09-10 08:28] VITALS: BP 120/73; PULSE 78; TEMP 98.4; O2SAT 96
[2017-09-10] MEDS: Lidocaine 5% Patch TD SCH (09:59)
[2017-09-10] MEDS: Enoxaparin 40 mg Syringe SC SCH (10:00)
[2017-09-10] MEDS: cefTRIAXone 2 GM IN NS 2 GM/100 ML BAG IVPB SCH (10:00)
--- NOTE | 2017-09-10 15:37 | DS ---
HISTORY OF PRESENT ILLNESS: This is a 76-year-old female who had come in to the hospital and was found to have right-sided pyelonephritis and sepsis secondary to E. coli. She was started on IV antibiotics with Rocephin. She had improvement of her symptoms. She was also found to have an L2 vertebral fracture. This was acute. This happened about 3 weeks ago and so she has difficulty ambulating because of her pain. She does not wish to take narcotics because of its potential side effects. She is waiting to go to subacute rehab. PHYSICAL EXAMINATION: VITAL SIGNS: Temperature is 98.4, pulse of 78, blood pressure is 120/73, respirations 20. GENERAL: The patient is lying in bed, flat, comfortable. HEENT: No oral lesion. Anicteric sclerae. Moist mucosa. NECK: No JVD, adenopathy, or thyromegaly. CARDIOVASCULAR: S1 and S2, regular. No murmurs, rubs, or gallops. LUNGS: Clear to auscultation bilaterally. No wheeze, rales, or rhonchi. ABDOMEN: Bowel sounds are positive, soft, nontender and nondistended. EXTREMITIES: No cyanosis, clubbing or edema. ASSESSMENT: 1. Sepsis secondary to Escherichia coli. 2. Right-sided pyelonephritis. 3. L2 vertebral fracture. 4. Obesity with a body mass index of 43. 5. Nausea, improved. 6. Peptic ulcer history. PLAN: The patient is on Lovenox for DVT prophylaxis. She is on a Lidoderm patch for her pain. The patient is on Protonix daily. She is going to continue with Rocephin for a total of 10 days. She is day #5 of antibiotics. She is on tramadol for pain as well as she is on Zofran as needed. She is on a heart-healthy diet. Oliver Strickland MD
--- NOTE | 2017-09-11 01:54 | PN ---
DATE: 09/10/2017 SUBJECTIVE: The patient is in bed, no acute distress. The patient was seen earlier today, in room 573, bed 1. No fever and chills. PHYSICAL EXAMINATION: VITAL SIGNS: Temperature is 98, blood pressure is 120/70, respiratory rate 20, heart rate of 78. HEENT: Examination of HEENT is unremarkable. NECK: Supple. LUNGS: Have decreased breath sounds. HEART: Normal S1 and S2. ABDOMEN: Soft, nontender. LABORATORY DATA: Laboratory examination reveals white count of 12,300 and hemoglobin is noted. BUN of 15, creatinine of 0.8. Urinalysis is noted. Microbiology reveals E. coli in the urine and E. coli in the blood, sensitivity is noted, pansensitive, is resistant to ampicillin and trimethoprim-sulfamethoxazole and is resistant to Bactrim and nafcillin, however, sensitive to Cipro. THE PATIENT DOES HAVE MULTIPLE ALLERGIES INCLUDING CIPRO, LEVAQUIN AND SULFAMETHOXAZOLE. ASSESSMENT AND PLAN: A 76-year-old female seen earlier this morning at room 573, bed 1, with sepsis, E. coli bacteremia secondary to right-side hydronephrosis, on ceftriaxone day #5 and antibiotics, will complete 10 to 14 days. Charles Talavera MD
== END 2017-09-10 19:06 | DRG 872 ==
LOC: ED 15:51 → ERH 20:38 → 5RSO 22:21
PROVIDERS: ADMIT Internal Medicine Nephrology; ATTEND Internal Medicine Nephrology
DX: A41.51 Sepsis due to Escherichia coli [E. coli] (principal); N10 Acute pyelonephritis; M48.56XA Collapsed vertebra, not elsewhere classified, lumbar region, initial encounter for fracture; Z68.41 Body mass index [BMI] 40.0-44.9, adult; E66.01 Morbid (severe) obesity due to excess calories; K21.9 Gastro-esophageal reflux disease without esophagitis; M19.90 Unspecified osteoarthritis, unspecified site; Z96.651 Presence of right artificial knee joint; Z87.11 Personal history of peptic ulcer disease; Z86.011 Personal history of benign neoplasm of the brain